=== PATIENT | female | born 1940 | race Hispanic/Latino ===

== ENCOUNTER 2019-09-25 12:34 | Emergency (ER) | payer SELFPAY ==
[~2019-09-25] VITALS: Ht 152.4 cm; Wt 54.4 kg
[2019-09-25] MEDS ORDERED: SODIUM CHLORIDE 0.9% 1000ML 1,000 ML IV ONE (13:15)
--- NOTE | 2019-09-25 13:35 | NUR ---
PATIENT FAMILY MEMBER STATED SHE DID NOT WANT TO STAY, SHE WANTED TO LEAVE. EXPLAINED THAT PATIENT HAD BEEN SEEN BY PHYSICIAN, AND THAT SHE NEEDED ADMISSION FOR TREATMENT OF PNEUMONIA. DAUGHTER STATES THAT HER MOTHER DID NOT WANT TO STAY AND WAS READY TO LEAVE. DAUGHTER STATES THAT SHE DOES NOT WANT TO HAVE TO WAIT FOR A BED. RISKS OF LEAVING AGAINST MEDICAL ADVICE EXPLAINED TO PATIENTS DAUGHTER BY DR PEÑA.
--- OUTSIDE RECORDS SUMMARY | 2019-09-25 14:11 | XMS REPORT ---
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 Allergies, Adverse Reactions, Alerts Allergy Name Allergy Type Status Severity Reaction(s) Onset Date Inactive Date Treating Clinician Comments No Known Allergies DA Active U 2017-07-25 00:00:00 Medications This patient has no known medications. Results Test Description Test Time Test Comments Text Results Atomic Results Result Comments COMPREHENSIVE METABOLIC PANEL 2019-04-22 14:02:00 SODIUM (test code=NA) 138 mmol/L 136-145 POTASSIUM (test code=K) 3.8 mmol/L 3.5-5.1 CHLORIDE (test code=CL) 104.0 mmol/L 98-107 CARBON DIOXIDE (test code=CO2) 28.0 mmol/L 21-32 ANION GAP (test code=GAP) 9.8 10-20 GLUCOSE (test code=GLU) 196 mg/dL 74-106 BLOOD UREA NITROGEN (test code=BUN) 20 mg/dL 7-18 GLOMERULAR FILTRATION RATE (test code=GFR) 48 mL/min >=60 Estimated GFR by using Modified MDRD formula.Chronic kidney disease is defined as either kidney damageor GFR <60 mL/min/1.73 m2 for >3 months. CREATININE (test code=CREAT) 1.10 mg/dL 0.55-1.02 Note change in reference range due to change in reagent. BUN/CREATININE RATIO (test code=BUN/CREA) 17.9 10-20 TOTAL PROTEIN (test code=PROT) 6.7 gram/dL 6.4-8.2 ALBUMIN (test code=ALB) 3.7 g/dL 3.4-5.0 GLOBULIN (test code=GLOB) 3.0 gram/dL 2.7-4.2 ALBUMIN/GLOBULIN RATIO (test code=A/G) 1.2 0.75-1.50 CALCIUM (test code=CA) 10.0 mg/dL 8.5-10.1 BILIRUBIN TOTAL (test code=BILT) 0.70 mg/dL 0.0-1.0 SGOT/AST (test code=AST) 9 IUnit/L 15-37 SGPT/ALT (test code=ALT) 13 IUnit/L 12-78 ALKALINE PHOSPHATASE TOTAL (test code=ALKP) 85 IUnit/L 45-117 Note change in reference range due to change in reagent. COMPREHENSIVE METABOLIC [id number] 13:53:00* Test Item Value Reference Range Comments SODIUM (test code=NA) 138 mmol/L 136-145 POTASSIUM (test code=K) 3.8 mmol/L 3.5-5.1 CHLORIDE (test code=CL) 104.0 mmol/L 98-107 CARBON DIOXIDE (test code=CO2) mmol/L 21-32 ANION GAP (test code=GAP) 10-20 GLUCOSE (test code=GLU) mg/dL 74-106 BLOOD UREA NITROGEN (test code=BUN) mg/dL 7-18 GLOMERULAR FILTRATION RATE (test code=GFR) mL/min >=60 CREATININE (test code=CREAT) mg/dL 0.55-1.02 BUN/CREATININE RATIO (test code=BUN/CREA) 10-20 TOTAL PROTEIN (test code=PROT) gram/dL 6.4-8.2 ALBUMIN (test code=ALB) g/dL 3.4-5.0 GLOBULIN (test code=GLOB) gram/dL 2.7-4.2 ALBUMIN/GLOBULIN RATIO (test code=A/G) 0.75-1.50 CALCIUM (test code=CA) mg/dL 8.5-10.1 BILIRUBIN TOTAL (test code=BILT) mg/dL 0.0-1.0 SGOT/AST (test code=AST) IUnit/L 15-37 SGPT/ALT (test code=ALT) IUnit/L 12-78 ALKALINE PHOSPHATASE TOTAL (test code=ALKP) IUnit/L 45-117 [id number] 13:38:00* Test Item Value Reference Range Comments GLYCOSYLATED HEMOGLOBIN (HA1C) (test code=GLYHGB) 8.3 % HbA1 4.8-6.0 ESTIMATED AVERAGE GLUCOSE (test code=EAG) 192 MG/DL CBC W/AUTO [id number] 13:15:00* Test Item Value Reference Range Comments WHITE BLOOD CELL (test code=WBC) 8.2 K/mm3 4.5-12.5 RED BLOOD CELL (test code=RBC) 4.11 mill/mm3 3.7-5.2 HEMOGLOBIN (test code=HGB) 12.1 gram/dL 11.5-15.5 HEMATOCRIT (test code=HCT) 37.4 % 36.0-46.0 MEAN CELL VOLUME (test code=MCV) 91.0 fL 80-98 MEAN CELL HGB (test code=MCH) 29.4 picogram 27.0-33.0 MEAN CELL HGB CONCETRATION (test code=MCHC) 32.4 gram/dL 33.0-36.0 RED CELL DISTRIBUTION WIDTH (test code=RDW) 14.3 % 11.6-16.2 RED CELL DISTRIBUTION WIDTH SD (test code=RDW-SD) 47.4 fL 37.0-51.0 PLATELET COUNT (test code=PLT) 191 K/mm3 150-450 MEAN PLATELET VOLUME (test code=MPV) 10.2 fL 6.7-11.0 NEUTROPHIL % (test code=NT%) 76.2 % 39.0-69.0 IMMATURE GRANULOCYTE % (test code=IG%) 0.5 % 0.0-5.0 LYMPHOCYTE % (test code=LY%) 15.4 % 25.0-55.0 MONOCYTE % (test code=MO%) 6.7 % 0.0-10.0 EOSINOPHIL % (test code=EO%) 1.0 % 0.0-5.0 BASOPHIL % (test code=BA%) 0.2 % 0.0-1.0 NUCLEATED RBC % (test code=NRBC%) 0.0 % 0-0 NEUTROPHIL # (test code=NT#) 6.25 K/mm3 1.8-7.7 IMMATURE GRANULOCYTE # (test code=IG#) 0.04 x10 3/uL 0-0.03 LYMPHOCYTE # (test code=LY#) 1.26 K/mm3 1.0-5.0 MONOCYTE # (test code=MO#) 0.55 K/mm3 0-0.8 EOSINOPHIL # (test code=EO#) 0.08 K/mm3 0.0-0.5 BASOPHIL # (test code=BA#) 0.02 K/mm3 0.0-0.2 NUCLEATED RBC # (test code=NRBC#) 0.00 K/mm3 0.0-0.1 MANUAL DIFF REQUIRED (test code=MDIFF) NO CBC W/AUTO [id number] 13:14:00* Test Item Value Reference Range Comments WHITE BLOOD CELL (test code=WBC) K/mm3 4.5-12.5 RED BLOOD CELL (test code=RBC) mill/mm3 3.7-5.2 HEMOGLOBIN (test code=HGB) 12.1 gram/dL 11.5-15.5 HEMATOCRIT (test code=HCT) 37.4 % 36.0-46.0 MEAN CELL VOLUME (test code=MCV) fL 80-98 MEAN CELL HGB (test code=MCH) picogram 27.0-33.0 MEAN CELL HGB CONCETRATION (test code=MCHC) gram/dL 33.0-36.0 RED CELL DISTRIBUTION WIDTH (test code=RDW) % 11.6-16.2 RED CELL DISTRIBUTION WIDTH SD (test code=RDW-SD) fL 37.0-51.0 PLATELET COUNT (test code=PLT) K/mm3 150-450 MEAN PLATELET VOLUME (test code=MPV) fL 6.7-11.0 NEUTROPHIL % (test code=NT%) % 39.0-69.0 IMMATURE GRANULOCYTE % (test code=IG%) % 0.0-5.0 LYMPHOCYTE % (test code=LY%) % 25.0-55.0 MONOCYTE % (test code=MO%) % 0.0-10.0 EOSINOPHIL % (test code=EO%) % 0.0-5.0 BASOPHIL % (test code=BA%) % 0.0-1.0 NEUTROPHIL # (test code=NT#) K/mm3 1.8-7.7 LYMPHOCYTE # (test code=LY#) K/mm3 1.0-5.0 MONOCYTE # (test code=MO#) K/mm3 0-0.8 EOSINOPHIL # (test code=EO#) K/mm3 0.0-0.5 BASOPHIL # (test code=BA#) K/mm3 0.0-0.2
== END 2019-09-25 13:35 | disposition left against medical advice (07) ==
LOC: ER 12:34
DX: J18.9 Pneumonia, unspecified organism (principal)
CPT/HCPCS: 99282